=== PATIENT | male | born 1945 | race Caucasian/White ===

== ENCOUNTER 2016-11-19 02:42 | Inpatient (IN) | payer OTHER ==
[2016-11-13 11:46] LABS: HEMATOCRIT 39.7 % (42.0-52.0); HEMOGLOBIN 13.6 g/dL (14.0-18.0); MCH 33.2 PG (27-31); MCHC 34.3 g/dL (33-37); MCV 96.8 FL (81-99); MPV 9.1 FL (7.4-10.4); RBC 4.1 XMIL (4.7-6.1)
[2016-11-13 12:23] LABS: CALCIUM 9.5 mg/dL (8.8-10.2); POTASSIUM 4.3 mmol/L (3.5-5.1)
--- NOTE | 2016-11-13 15:41 | EKG Report ---
Test Performed on : 11/13/2016 11:32:34 AM Test Reason : PAT Blood Pressure : / mmHG Vent. Rate : 068 BPM Atrial Rate : 068 BPM P-R Int : 146 ms QRS Dur : 126 ms QT Int : 408 ms P-R-T Axes : 028 051 017 degrees QTc Int : 433 ms Normal sinus rhythm. Right bundle branch block Abnormal ECG When compared with ECG of 01-DEC-2007 12:58, premature ventricular complexes. are no longer present Right bundle branch block is now present Confirmed by Jhony Hernadez DO ([id number]) on 11/13/2016 6:58:08 PM
[2016-11-19] MEDS ORDERED: PEPCID ONE (05:25)
[2016-11-19] MEDS ORDERED: REGLAN ONE (05:25)
[2016-11-19] MEDS ORDERED: LR 1,000 ML ONE ×2 (05:26→06:28)
[2016-11-19] MEDS ORDERED: KEFZOL 2 GM/D5W 50 ML ONE (05:26)
[2016-11-19 08:05] LABS: URINE MICRO REVIEW NEEDED? NO; URINE SOURCE CATH
[2016-11-19 08:08] LABS: BILIRUBIN URINE NEGATIVE (NEGATIVE); BLOOD URINE NEGATIVE (NEGATIVE); COLOR STRAW; GLUCOSE URINE NEGATIVE (NEGATIVE); LEUKOCYTES URINE NEGATIVE (NEGATIVE); NITRITE URINE NEGATIVE (NEGATIVE); PH URINE 7.5; PROTEIN URINE NEGATIVE (NEGATIVE); TURBIDITY URINE CLEAR (CLEAR); UROBILINOGEN URINE NORMAL (NORMAL)
[2016-11-19 08:09] LABS: UR EPITHELIAL CELLS <10 /HPF (<10); URINE BACTERIA NEGATIVE /HPF; URINE RBC <10 /HPF (<10); URINE WBC <10 /HPF (<10)
[2016-11-19] MEDS: SENSORCAINE 0.25%/EPI 1:200,000 ONE ×2 (11:52)
[2016-11-19] MEDS: B & O 16A SUPP ONE ×2 (11:52)
[2016-11-19] MEDS ORDERED: NS 1,000 ML ONE (12:13)
[2016-11-19] MEDS ORDERED: PHENERGAN PO PRN (12:42)
[2016-11-19] MEDS ORDERED: LABETALOL IV PRN (12:42)
[2016-11-19] MEDS ORDERED: MORPHINE IV PRN (12:42)
[2016-11-19] MEDS ORDERED: PHENERGAN PR PRN (12:42)
[2016-11-19] MEDS ORDERED: SODIUM CHLORIDE 0.9% INJ PRN (12:42)
[2016-11-19] MEDS ORDERED: PHENERGAN IV PRN (12:42)
[2016-11-19] MEDS ORDERED: BENADRYL IV PRN (12:42)
[2016-11-19] MEDS ORDERED: BENADRYL LIQUID PO PRN (12:42)
[2016-11-19] MEDS ORDERED: DITROPAN PO PRN (12:42)
[2016-11-19] MEDS ORDERED: OXY IR PO PRN (12:46)
[2016-11-19] MEDS ORDERED: VERSED ONE (12:59)
[2016-11-19] MEDS ORDERED: FENTANYL ONE (12:59)
[2016-11-19] MEDS ORDERED: MORPHINE ONE (12:59)
[2016-11-19] MEDS ORDERED: DIPRIVAN 1% ONE (13:00)
[2016-11-19] MEDS ORDERED: NEOSTIGMINE ONE (14:12)
[2016-11-19] MEDS ORDERED: SODIUM CHLORIDE 0.9% 30 ML ONE (14:12)
[2016-11-19] MEDS ORDERED: ZOFRAN ONE (14:12)
[2016-11-19] MEDS ORDERED: EPHEDRINE ONE (14:12)
[2016-11-19] MEDS ORDERED: LUBRIFRESH PM OPH OINTMENT ONE (14:12)
[2016-11-19] MEDS ORDERED: XYLOCAINE-MPF 2% ONE (14:13)
[2016-11-19] MEDS ORDERED: QUELICIN (DOSE) ONE (14:13)
[2016-11-19] MEDS ORDERED: ROBINUL ONE (14:13)
[2016-11-19] MEDS ORDERED: NORCURON ONE (14:13)
[2016-11-19] MEDS ORDERED: OFIRMEV 1000 MG/ISOTONIC SOLN 200 ML ONE (14:13)
[2016-11-19] MEDS ORDERED: LR 2,000 ML ONE (14:13)
[2016-11-19] MEDS: OFIRMEV 1000 MG/ISOTONIC SOLN 100 ML IV SCH ×2 (16:17→22:15)
[2016-11-19] MEDS: NS 1,000 ML IV SCH (16:18)
[2016-11-19] MEDS: KEFZOL 1 GM/D5W 50 ML IV SCH (16:18)
[2016-11-19] MEDS: HUMULIN R SUBQ SCH ×2 (16:19→20:26)
--- NOTE | 2016-11-19 20:24 | OPERATIVE NOTE ---
PROCEDURE DATE: 11/19/2016 SURGEON: Isaias Marques MD PREOPERATIVE DIAGNOSIS: Prostate cancer with elevated PSA to 11.8. POSTOPERATIVE DIAGNOSIS: Prostate cancer with elevated PSA to 11.8. PROCEDURE PERFORMED: Laparoscopic robot-assisted radical retropubic prostatectomy with bilateral pelvic lymph node dissection and urethral suspension. ANESTHESIA: General endotracheal. FINDINGS: Prostate status post TURP with very wide bladder neck, normal appearing lymph nodes bilaterally. 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 His PSA has been slowly increasing and he was on active surveillance but after it went to 11.8 he decided on radical surgery. DESCRIPTION OF PROCEDURE: After informed consent was obtained from the patient, him receiving IV antibiotics, he was taken to the main OR, placed in the supine position. General anesthesia via endotracheal tube was achieved. He was then prepped and draped in the usual sterile fashion for abdominal, penile and perineal surgery. An 18-Tai[place]ese Villegas catheter was passed through the patient's urethra, prostate, and in the bladder without difficulty, 10 mL sterile water placed in Villegas's balloon. Pneumoperitoneum was achieved with the Veress needle after a normal water drop test. The camera trocar which was a 12 mm trocar was placed just above the umbilicus in the midline. The remaining robot trocars were placed in the standard position for the fourth arm to be in the right lower quadrant. The bilingual executive assistant port was a 12 mm port that was placed in the left epigastric area. After the trocars were placed, the patient was placed in steep Trendelenburg and the bed was lowered all the way, the robot was docked. The procedure was started by taking down physiologic adhesions of the left descending and sigmoid colon. The peritoneum was incised as it reflected off of the rectum a distance about 2 cm above this reflection. This was dissected down to the ampulla of vas deferens and seminal vesicles. These were bluntly and sharply dissected free. The vas deferens was incised with the electrocautery. The pedicle to the seminal vesicle was clipped and the seminal vesicle was dissected all the way back to the base of the prostate. Both sides were accomplished similarly. The peritoneum just medial to the internal inguinal ring was incised. This incision was taken down to the vas deferens and up onto the anterior abdominal wall staying lateral to the medial umbilical ligament. Both sides were accomplished similarly. The medial umbilical ligaments were incised as well as the median umbilical ligament incised using the electrocautery, the bladder was dropped off of the anterior abdominal wall. The fibrofatty tissue off the anterior and lateral sides of the prostate was removed sharply. The endopelvic fascia was entered lateral to the prostate. This incision was extended up to the puboprostatic ligaments distally and back to the base of the prostate proximally. Both sides were accomplished similarly. The puboprostatic ligaments were taken down sharply. The levator ani muscles were bluntly pushed off the sides of the prostate. The dorsal vein complex was ligated using a 2-0 V- Loc suture. The suture was placed around the complex twice then through the periosteum of the pubis, back through the complex and then back through the periosteum of the pubis. The bladder was incised on the proximal prostate and the bladder was sharply dissected off the base of the prostate. The bladder was entered and it was seen that he is status post TURP with a very wide open bladder neck and the proximal prostate was also wide open. The ureteral orifices were visualized and the bladder neck posteriorly was incised just distal to the ureteral orifices. The bladder was then sharply dissected off the remaining base of the prostate. This left a very large bladder neck. The bladder neck was closed at the 3 o'clock position using a running suture of 2-0 Vicryl. The 9 o'clock position was likewise closed. The seminal vesicle and vas deferens was brought up from the previously dissected space. The prostate pedicles were taken down with clips on both sides. The prostate was dissected off the rectum all way to the apex. A nerve-sparing procedure was performed. The dorsal vein complex as it is spread over the apex of the prostate was cauterized with the bipolar cautery and incised. The urethra was visualized. The Villegas catheter was passed through the urethra and the anterior portion of the urethra was incised to where the Villegas catheter was visualized. It was pulled back and the posterior urethra was incised just distal to the prostatic apex. The remaining fibers of the posterior rhabdosphincter was incised and the specimen was placed in an EndoCatch retrieval bag. The prostatic fossa was irrigated. No bleeding areas were seen. A modified pelvic lymph node dissection was performed by removing the fatty tissue off of the medial side of the external iliac vein starting proximal to the internal ring and dissecting back to the bifurcation of the external and internal iliac veins. This was taken down to the obturator nerve and then back up to the bifurcation. The distal end of the node package was clipped with a Hem-O-Kieran clip. The proximal end was likewise clipped. The node was removed from the abdomen without difficulty. Both sides were accomplished similarly. Surgicel was then packed in the obturator fossa. After the node dissection was performed the bladder was anastomosed to the urethra by 1st anastomosing the vesicovisceral fascia to the posterior rhabdosphincter with a running suture of 3-0 V-Loc suture. The needles were kept on each end of the suture to allow suspending the bladder neck at completion of the anastomosis. The bladder was anastomosed to the urethra with a running suture of 3-0 V-Loc suture. The urethral suspension was performed by passing the sutures that anastomosed the vesicovisceral fascia to the posterior rhabdosphincter by passing the needle through the periosteum of the pubis. Both ends were done similarly, one the left, one on the right and tension was placed on the suture such that the bladder neck was suspended. An 18-Tai[place]ese Villegas catheter was easily passed through the patient's urethra and up into the bladder without difficulty; 15 mL sterile water were placed in the balloon, the bladder irrigated and was distended to 120 mL without leakage. The Villegas was placed to gravity drain. The robot trocars were removed under direct vision. The EndoCatch retrieval string was brought out through the camera port. The table was then placed in the supine position. The camera port incision was extended and the specimen was retrieved without difficulty. The abdominal rectus fascia was reapproximated with interrupted sutures of #1 Maxon. The skin was reapproximated with clips at all sites. The wounds were dressed with Telfa gauze and OpSite. He tolerated the procedure well. The estimated blood loss was 100 mL. He was extubated and taken to the recovery room in good condition.
[2016-11-19] MEDS ORDERED: PEPCID PO SCH (21:00)
[2016-11-19] MEDS: PERIDEX MT SCH (22:14)
[2016-11-19] MEDS: PEPCID PO SCH (22:14)
[2016-11-19] MEDS: COLACE PO SCH (22:14)
[2016-11-19] MEDS: STARLIX PO SCH (22:14)
[2016-11-20] MEDS: KEFZOL 1 GM/D5W 50 ML IV SCH (00:02)
[2016-11-20] MEDS: NS 1,000 ML IV SCH ×3 (00:03→09:10)
[2016-11-20] MEDS: HUMULIN R SUBQ SCH ×3 (00:10→16:33)
[2016-11-20] MEDS: OFIRMEV 1000 MG/ISOTONIC SOLN 100 ML IV SCH (02:59)
[2016-11-20 06:18] LABS: HEMATOCRIT 37.2 % (42.0-52.0); HEMOGLOBIN 12.3 g/dL (14.0-18.0); MCHC 33.1 g/dL (33-37); MCV 99.7 FL (81-99); MPV 9.9 FL (7.4-10.4); RBC 3.73 XMIL (4.7-6.1)
[2016-11-20 06:33] LABS: CALCIUM 8.5 mg/dL (8.8-10.2); POTASSIUM 4.2 mmol/L (3.5-5.1)
[2016-11-20] MEDS ORDERED: PRINIVIL PO SCH (09:00)
[2016-11-20] MEDS ORDERED: PRAVACHOL PO SCH (09:00)
[2016-11-20] MEDS: COLACE PO SCH (09:08)
[2016-11-20] MEDS: PERIDEX MT SCH (09:09)
[2016-11-20] MEDS: PEPCID PO SCH (09:10)
[2016-11-20] MEDS: STARLIX PO SCH ×2 (09:12→13:42)
[2016-11-20 15:45] VITALS: BP 125/62
== END 2016-11-20 19:50 | disposition home or self-care (01) | DRG 708 ==
LOC: SURHOLD 02:42 → 4N 12:28
PROVIDERS: ADMIT Urology; ATTEND Urology
PROC: 0VT34ZZ Resection of Bilateral Seminal Vesicles, Percutaneous Endoscopic Approach (ICD-10-PCS; 2016-11-19)
PROC: 0TSD4ZZ Reposition Urethra, Percutaneous Endoscopic Approach (ICD-10-PCS; 2016-11-19)
PROC: 0VBQ4ZZ Excision of Bilateral Vas Deferens, Percutaneous Endoscopic Approach (ICD-10-PCS; 2016-11-19)
PROC: 8E0W4CZ Robotic Assisted Procedure of Trunk Region, Percutaneous Endoscopic Approach (ICD-10-PCS; 2016-11-19)
PROC: 0VT04ZZ Resection of Prostate, Percutaneous Endoscopic Approach (ICD-10-PCS; principal; 2016-11-19 06:59)
PROC: 07TJ4ZZ Resection of Left Inguinal Lymphatic, Percutaneous Endoscopic Approach (ICD-10-PCS; 2016-11-19 06:59)
PROC: 07TH4ZZ Resection of Right Inguinal Lymphatic, Percutaneous Endoscopic Approach (ICD-10-PCS; 2016-11-19 06:59)
DX: C61 Malignant neoplasm of prostate (principal); E11.9 Type 2 diabetes mellitus without complications; I10 Essential (primary) hypertension; K21.9 Gastro-esophageal reflux disease without esophagitis; Z87.891 Personal history of nicotine dependence; Z83.3 Family history of diabetes mellitus; Z80.9 Family history of malignant neoplasm, unspecified; Z79.84 Long term (current) use of oral hypoglycemic drugs; Z87.442 Personal history of urinary calculi; Z85.21 Personal history of malignant neoplasm of larynx
CPT/HCPCS: 80048; 81001; 82948; 85027; 88305; 88307; 88309; 88313; 88331; 93005; 93010; 94761; 94799; J0131; J0330; J0690; J2250; J2270; J2405; J3010; J7030; J7120; J2710